=== PATIENT | female | born 1930 | race Caucasian/White ===

== ENCOUNTER → 2017-11-01 | Emergency (ER) | payer OTHER ==
[~2017-11-01] VITALS: Ht 149.9 cm; Wt 57.2 kg
[~2017-11-01] MED LIST: ARICEPT5 MG PO; SYNTHROID50 MCG PO
== END | disposition home or self-care (01) ==
LOC: ER 21:35
DX: S42.291A Other displaced fracture of upper end of right humerus, initial encounter for closed fracture (principal); S00.81XA Abrasion of other part of head, initial encounter; W18.09XA Striking against other object with subsequent fall, initial encounter; Y93.89 Activity, other specified; Y92.018 Other place in single-family (private) house as the place of occurrence of the external cause; Y99.8 Other external cause status

== ENCOUNTER 2018-01-06 14:33 | Inpatient (IN) | payer OTHER ==
[~2018-01-06] VITALS: Ht 157.5 cm; Wt 56.7 kg
[2018-01-06] MEDS ORDERED: LISINOPRIL10 MG PO (14:46)
[2018-01-06] MEDS ORDERED: SYNTHROID50 MCG PO (14:47)
== END 2018-01-10 12:13 | disposition home or self-care (01) | DRG 690 ==
LOC: ER 14:33 → EDBD 14:34 → ER 14:34 → MEDJ 01-07 06:45 → SEC-K 01-07 06:45 → MEDJ 01-07 10:56
DX: N30.01 Acute cystitis with hematuria (principal); E11.65 Type 2 diabetes mellitus with hyperglycemia; G30.8 Other Alzheimer's disease; F02.80 Dementia in other diseases classified elsewhere, unspecified severity, without behavioral disturbance, psychotic disturbance, mood disturbance, and anxiety; I10 Essential (primary) hypertension